=== PATIENT | female | born 1990 | race African-American/Black ===

== ENCOUNTER 2017-02-10 05:47 | Inpatient (IN) ==
[2017-02-10] MEDS ORDERED: FAMOTIDINE 20 MG/2 ML VIAL IV ONE (05:58)
[2017-02-10] MEDS ORDERED: CITRIC ACID/SODIUM CITRATE 30 ML UDCUP PO ONE (05:58)
[2017-02-10] MEDS ORDERED: ceFAZolin 2,000 MG in SODIUM CHLORIDE 0.9% 100 ML IV ONE (05:58)
[2017-02-10 06:25] LABS: Basophils % 0.3 % (0.0-0.8); Eosinophils # 0.1 10*3/uL (0.0-0.87); Eosinophils % 1.1 % (0.00-10.9); Hematocrit 32.3 VOL% (35.7-47.0); Hemoglobin 10.4 GM/DL (12.0-16.0); Immature Granulocytes % 0.3 %; Immature Granulocytes Absolute 0.03 #; Lymphocytes % 32.1 % (21.3-54.2); Mean Corpuscular HGB Conc 32.2 GM/DL (32-36); Mean Corpuscular Hemoglobin 25 PG (27-34); Mean Corpuscular Volume 77.1 FL (87-102); Mean Platelet Volume 11.6 FL (9.6-12.0); Monocytes # 0.8 10*3/uL (0.11-0.8); Monocytes % 8.1 % (1.7-12.7); Neutrophils # 5.4 10*3/uL (1.4-7.4); Neutrophils % 58.1 % (38.7-73.9); Platelet Count 182 T/CUMM (130-400); Red Blood Count 4.19 MC/CUMM (3.8-5.5); Red Cell Distribution Width 20.7 % (9.3-17.3); White Blood Count 9.3 T/CUMM (4-12)
[2017-02-10 07:05] LABS: Alanine Aminotransferase 16 U/L (13-56); Albumin 2.8 G/DL (3.4-5.0); Alkaline Phosphatase 140 U/L (45-117); Aspartate Amino Transferase 19 U/L (0-37); Bilirubin,Total < 0.39 MG/DL (0.2-1.0); Blood Urea Nitrogen 7 MG/DL (7-18); Calcium 8.4 MG/DL (8.5-10.1); Glucose 71 MG/DL (74-106); Osmolality,Calculated 270.7 MOS/KG (273-304); Potassium 3.8 MMOL/L (3.5-5.1); Sodium 138 MMOL/L (136-145); Total Protein 6.7 G/DL (6.4-8.3)
[2017-02-10] MEDS: LACTATED RINGERS 1,000 ML IV SCH ×3 (07:27→18:10)
[2017-02-10] MEDS ORDERED: OXYTOCIN 10 UNIT/ML VIAL IM ONE (07:29)
[2017-02-10] MEDS ORDERED: OXYTOCIN/LR 30 UNIT/1,000 ML BAG IV ONE (07:29)
[2017-02-10] MEDS ORDERED: ceFAZolin 2,000 MG in PREMIX 1 EACH IV ONE (08:00)
[2017-02-10] MEDS ORDERED: ONDANSETRON 4 MG/2 ML VIAL ONE (08:50)
[2017-02-10] MEDS ORDERED: PROPOFOL 200 MG/20 ML VIAL IV ONE (08:50)
--- NOTE | 2017-02-10 09:31 | OB/GYN History & Physical ---
History of Present Illness Chief complaint: In for repeat section due to previous section 2 History of present illness: Ms. Reed is a 26 year old female who is a 3 para 2 living 2. Her MAXINE is 02/15/2017 for an estimated gestational age of 39 weeks and 2 days. The patient presents for elective repeat section due to previous section. The risk and benefits of been thoroughly discussed with this patient and significant other and plan of care has been discussed with Dr. Silva and all parties are in agreement plan. The patient received her care through the [facility] and she received routine care throughout her course was uneventful. The patient and her care when she was approximately 17 weeks otherwise she has had an uneventful course of . labs she is rubella immune, serologies nonreactive, hepatitis B negative, HIV negative, GBS culture positive. Review of systems is negative. Home Medications Medication Instructions Recorded Confirmed Type Ondansetron Odt Tab [Zofran Odt] 4 mg PO Q6H PRN #20 tablet 07/06/16 02/10/17 Rx No122/Iron/Folic Acid 1 tablet PO DAILY 01/06/17 02/10/17 History [ Multi Tablet] Ranitidine Tab [Zantac Tab] 2 tablet PO DAILY 01/06/17 02/10/17 History Allergies Allergy/AdvReac Type Severity Reaction Status Date / Time No Known Allergies Allergy Verified 01/27/17 11:39 12 point system: reviewed and no additional remarkable complaints except as stated Medical,Surgical,& Family Hx - Medical History Cardio: No history of: Hypertension Psychological: No history of: Anxiety Disorders, ADHD, Behavior Problems, Bipolar Disorder, Depression, Previous Suicide Attempt, Psychiatric/Substance Abuse Tx, Schizophrenia, Violent Behavior, Psychiatric Problems Endocrine: No history of: Diabetes Mellitus (IDDM), Diabetes Mellitus (NIDDM) Respiratory: No history of: Asthma, Bronchitis, Pneumonia Renal: No history of: Renal Failure, Renal Problems Gastrointestinal: No history of: Gastrointestinal Bleed, Liver Problems, GI Problems Musculoskeletal: No history of: Amputation Reproductive: History of: Sexually Transmitted Disorders (CHLAMYDIA), Reproductive Cancer (Patient states that she has had cervical cancer) No history of: Reproductive Problems - Surgical History Thoracic Surgeries: Patient denies;: Organ Transplant Neurologic Surgeries: Patient denies: Neurologic Surgery Reproductive Surgeries: Surgical HX of;: Section (C/S X2) Patient denies;: Breast Surgery, Gynecologic Surgery - Family History Family History: Reports;: Family Diabetes (Grandmother), Family Hypertension ( Sisters) Denies;: Family Anesthesia Reaction, Family Cancer, Family Heart Disease, Family Hematology, Family Psychiatric Problems, Family Stroke, Additional Family History - Social History Smoking Status: Never smoker Frequency of Alcohol Use: None Type of Drug Use: None Marital Status: Single Lives With:: Significant Other Functional capacity: independent ambulation 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 General appearance: no acute distress - Antepartum / Post Antepartum Exam Cervix - Dilatation: Deferred Breast: bilateral: normal Abdomen obstetrics: Present: bowel sounds normal Vagina: Present: normal moisture, discharge Uterus exam: Present: enlarged Anus/Rectum: Present: normal perianal skin - Head Head exam: Present: normal inspection - Respiratory Respiratory exam: Present: clear to auscultation bilaterally - Cardiovascular Cardiovascular exam: Present: regular rate and rhythm - GI/Abdominal GI/Abdominal exam: Present: normal bowel sounds, soft - Extremities Exam Extremities exam: Present: normal inspection - Back Exam Back exam: Present: normal inspection - Neurological Exam Neurological exam: Present: alert, oriented X3 - Psychiatric Psychiatric exam: Present: normal affect, normal mood - Skin Skin exam: Present: normal color, warm Assessment and Plan (1) Previous section Status: Acute Assessment and plan: Admit IV fluids Preop for section Informed consent for section Anticipate delivery of a viable Current Visit: Yes (2) Status post repeat low transverse section Status: Acute Assessment and plan: Initiate routine postop orders. Current Visit: Yes Results - Labs CBC & BMP: 02/10/17 06:15 02/10/17 06:15
--- NOTE | 2017-02-10 09:51 | Operative Note ---
Date of procedure: 02/10/17 Procedure: Preoperative diagnosis: Term 39 weeks, repeat , elective sterilization Postoperative diagnosis: Same Anesthesia:[] Regional Estimated blood loss: [] 300 cc Surgeon: Dr. Silva Findings: [] Term delivered at 9:20 AM, placenta was delivered at 921 , weight is 7 lbs. 7 oz., Apgars were 9 at 1 minute 9 at 5 minutes, male Complications: None Procedure: Low transverse section and bilateral tubal ligation The patient was taken to the operating suite heart tones were obtained prior to and after regional anesthesia was obtained. She was placed in supine position her abdomen was prepped and draped in usual manner for major abdominal surgery. Through an abdominal incision the skin, subcutaneous, fascial layer and peritoneal the abdomen was entered. The bladder flap was created and a low transverse incision was made.. Fluid was clear and normal amount X, Apgars, the placenta was delivered and sent to lab for further evaluation. Injected with intrauterine Pitocin. The first layer of the uterus was closed with #1 Vicryl in a continuous locking manner. Close to imbricate the first layer with #1 Vicryl. The peritoneum was approximated with #2-0 Vicryl.[Fallopian tubes were grasped with a Job clamp. Into the avascular reason mesosalpinx was perforated. Proximal distal tube was ligated. Segment of the tube was cut in between. The cartilage was then cauterized] All the last sponges and instruments were accounted for -2.) #2-0 Vicryl. Fascia was approximated with #0-0 Maxon.. The skin was approximated with brice. She tolerated procedure well and was taken to recovery room in stable condition. Surgeon / Physician: Tanmay Silva Results - Labs CBC & BMP: 02/10/17 06:15 02/10/17 06:15 Discharge Plan - Discharge Medications No Action Ondansetron Odt Tab [Zofran Odt] 4 mg PO Q6H PRN #20 tablet PRN Reason: Nausea/Vomiting Ranitidine Tab [Zantac Tab] 2 tablet PO DAILY No122/Iron/Folic Acid [ Multi Tablet] 1 tablet PO DAILY - Follow Up or Referral - Forms/Instructions
[2017-02-10 09:54] LABS: Cord Arterial Blood HCO3 20.7 MMOL/L
[2017-02-10 09:57] LABS: Cord Venous Blood HCO3 21.8 MMOL/L; Cord Venous Blood PCO2 35.2 MMHG; Cord Venous Blood PO2 45.2
[2017-02-10] MEDS ORDERED: fentaNYL 100 MCG/2 ML VIAL ONE (09:59)
[2017-02-10] MEDS ORDERED: ePHEDrine 50 MG/ML AMP ONE (10:00)
[2017-02-10] MEDS ORDERED: MORPHINE 10 MG/10 ML VIAL ONE (10:00)
[2017-02-10] MEDS ORDERED: OXYTOCIN/LR 20 UNIT/1,000 ML BAG IV ONE ×3 (10:04→12:00)
[2017-02-10] MEDS ORDERED: SIMETHICONE CHEW 80 MG TABLET PO PRN (12:00)
[2017-02-10] MEDS ORDERED: ACETAMINOPHEN 325 MG TABLET PO PRN (12:00)
[2017-02-10] MEDS ORDERED: ONDANSETRON 4 MG/2 ML VIAL IV PRN (12:00)
[2017-02-10] MEDS ORDERED: RHO(D) IMMUNE GLOBULIN 300 MCG SYRINGE IM ONE (12:00)
--- NOTE | 2017-02-10 16:48 | Anesthesia Post-Op ---
Anesthesia Post OP - Post Ansesthetic Evaluation Patient seen in post op: Yes Resp: within normal limits CV: within normal limits Mental: within normal limits Temp: within normal limits [id number]: within normal limits Nausea and Vomiting: within normal limits Pain: within normal limits
[2017-02-10] MEDS: DOCUSATE SODIUM 100 MG CAPSULE PO SCH (20:51)
[2017-02-11] MEDS: LACTATED RINGERS 1,000 ML IV SCH ×2 (02:50)
[2017-02-11 07:11] LABS: Basophils % 0.2 % (0.0-0.8); Eosinophils # 0.1 10*3/uL (0.0-0.87); Eosinophils % 0.4 % (0.00-10.9); Hemoglobin 9.8 GM/DL (12.0-16.0); Immature Granulocytes % 0.6 %; Immature Granulocytes Absolute 0.08 #; Lymphocytes # 1.6 10*3/uL (1.4-4.0); Lymphocytes % 13.1 % (21.3-54.2); Mean Corpuscular HGB Conc 32.7 GM/DL (32-36); Mean Corpuscular Hemoglobin 25 PG (27-34); Mean Corpuscular Volume 76.9 FL (87-102); Mean Platelet Volume 11.5 FL (9.6-12.0); Monocytes # 0.7 10*3/uL (0.11-0.8); Monocytes % 5.3 % (1.7-12.7); Neutrophils # 10.1 10*3/uL (1.4-7.4); Neutrophils % 80.4 % (38.7-73.9); Platelet Count 168 T/CUMM (130-400); Red Cell Distribution Width 20.3 % (9.3-17.3); White Blood Count 12.5 T/CUMM (4-12)
[2017-02-11] MEDS: FERROUS SULFATE 325 MG TABLET PO SCH (09:06)
[2017-02-11] MEDS: MULTIVITAMIN (PRENATAL) TABLET PO SCH (09:06)
[2017-02-11] MEDS: MAGNESIUM HYDROXIDE SUSP 30 ML UDCUP PO PRN (09:06)
[2017-02-11] MEDS: DOCUSATE SODIUM 100 MG CAPSULE PO SCH ×2 (09:06→20:58)
--- NOTE | 2017-02-11 11:22 | Pathology Report from [facility] ---
[facility] ACCESSION # : [id number] PATIENT NAME : Viry Reed ORDERING DR : THIAGO SEQUEIRA MD CLINICAL HX: IUP @ 39.1 weeks - Repeat with elective tubal ligation - History of polyphydrominos POST-OP DX: Same SPECIMEN INFO: #1 Left segment of fallopian tube #2 Right segment of fallopian tube GROSS DESCRIPTION: #1 Received fresh labeled with the patients name VIRY REED and (A) LT SEG FALLOPIAN TUBE consists of a 3.5 x 0.6 cm segment of unfimbriated fallopian tube. The serosa is pink-contreras. A special service representative section submitted in cassette #1.#2 Received fresh labeled with the patients name VIRY REED and (B) RT SEG FALLOPIAN TUBE consists of a 2.6 x 0.6 cm segment of unfimbriated fallopian tube. The serosa is pink-contreras. A special service representative section submitted in cassette #2. DIAGNOSIS FOR VIRY REED: #1 Completely transected segment of fallopian tube, left.#2 Completely transected segment of fallopian tube, right. COLLECTED DATE: 02/10/2017 [facility] REPORT DATE: 02/11/2017 ELECTRONICALLY SIGNED BY: Rodri Donnelly M.D. 02/11/2017 - 9:59:38 [facility]ENTERCarina
[2017-02-11] MEDS: IBUPROFEN 800 MG TABLET PO PRN ×2 (12:13→21:01)
[2017-02-12 07:41] VITALS: BP 120/69
[2017-02-12] MEDS: FERROUS SULFATE 325 MG TABLET PO SCH (08:32)
[2017-02-12] MEDS: MAGNESIUM HYDROXIDE SUSP 30 ML UDCUP PO PRN (08:32)
[2017-02-12] MEDS: MULTIVITAMIN (PRENATAL) TABLET PO SCH (08:32)
[2017-02-12] MEDS: DOCUSATE SODIUM 100 MG CAPSULE PO SCH (08:32)
--- NOTE | 2017-02-12 09:07 | Discharge Summary ---
Hospital Course - Hospital Course Hospital Course: Ms. Reed is a 26-year-old female who presented to the labor department for repeat section due to previous section. The patient did receive the C- section and delivered a viable infant with no complications. She has followed a normal postoperative course and she has done well. Her incision is well approximated without signs of infection. Her brice are intact. Her fundus is firm and midline. Her bleeding is minimal with no odor. She is bonding well with her . Her vital signs and lab values are stable. She is voiding without difficulty. Bowel sounds are positive and she has had a normal bowel movement. She will be discharged home with prescriptions for pain and a follow-up appointment in our office. The patient received an bilateral tubal ligation with this admission. Diagnosis - Discharge Diagnosis (1) Previous section Status: Acute (2) Status post repeat low transverse section Status: Acute Specialty Discharge - Follow Up or Referrals Follow up with: Tanmay Silva MD [Physician] - 2 Weeks Discharge Plan - Discharge Data Disposition: Disch To Home/Self Care Condition at Discharge: Stable Discharge Diet: advance to your usual diet, regular diet Activity: increase activity as tolerated, no lifting, no prolonged standing Hygiene: may shower Weight Bearing at Discharge: partial weight bearing Driving: not until seen by doctor Contact your physician if you experience:: fever over 101, pain uncontrolled by pain medications - Discharge Medications New HYDROcodone/ACETAMIN 5-325 [[place] 5-325] 2 tablet PO Q6H PRN #30 tablet PRN Reason: Pain Severe (8-10) Ibuprofen Tab [Motrin Tab] 800 mg PO Q8H PRN #30 tablet PRN Reason: Pain Severe (8-10) Ferrous Sulfate Tab [Feosol Original Tab] 325 mg PO DAILY #30 tablet No Action Ondansetron Odt Tab [Zofran Odt] 4 mg PO Q6H PRN #20 tablet PRN Reason: Nausea/Vomiting Ranitidine Tab [Zantac Tab] 2 tablet PO DAILY No122/Iron/Folic Acid [ Multi Tablet] 1 tablet PO DAILY - Follow Up or Referral Follow Up: Tanmay Silva MD [Physician] - 2 Weeks - Forms/Instructions Instructions: Section (DC), Depression (GEN), Perineal Care (DC), Bleeding (DC) Exam - Constitutional Vitals: Period Temp Pulse Resp BP Sys/Pierre Pulse Ox Last 24 Hr 97.2 F-98.3 F 75-109 18-20 109-132/58-70 97-99 General appearance: no acute distress - Head Head exam: Present: normal inspection - Neck Neck exam: Present: normal inspection - Respiratory Respiratory exam: Present: clear to auscultation bilaterally - Cardiovascular Cardiovascular exam: Present: regular rate and rhythm - GI/Abdominal GI/Abdominal exam: Present: normal bowel sounds, soft - Extremities Exam Extremities exam: Present: normal inspection - Neurological Exam Neurological exam: Present: alert, oriented X3 - Psychiatric Psychiatric exam: Present: normal affect, normal mood - Skin Skin exam: Present: normal color, warm Discharge Results Procedures and tests throughout hospitalization: Pending Orders 02/10/17 06:15 Antibody Identification Stat Red Blood Cells Leuko Red Stat Type and Screen Stat 02/11/17 09:00 Urinalysis Stat Labs on day of discharge: Labs from last 24 hours 02/10/17 06:15 Crossmatch See Detail DS: Provider Date of admission: 02/10/17 05:58 Primary care physician: . No PCP Attending physician on admission: Tanmay Silva MD Consults: 02/10/17 05:58 Consult to Anesthesiology [CONS] Routine Consulting Provider: Reason for Anesthesiology: Pre-op Clearance 02/10/17 12:00 Consult to Household Coordinator [CONS] Routine Consult Household Coordinator: Breast Feeding Discharging clinician: Dorothy Jay CNM Expected date of discharge: 02/12/17
--- NOTE | 2017-02-12 09:32 | OB/GYN Progress Note ---
Assessment and Plan (1) Previous section Status: Acute Assessment and plan: Admit IV fluids Preop for section Informed consent for section Anticipate delivery of a viable infant Current Visit: Yes (2) Status post repeat low transverse section Status: Acute Assessment and plan: Initiate routine postop orders. 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 Bonding well with Exam COAL HIKER - Constitutional Vitals: Vital Signs Temp Pulse Resp BP Pulse Ox 02/12/17 07:40 98.3 F 79 20 120/69 98 02/12/17 06:30 18 02/12/17 05:45 18 02/12/17 04:00 98.1 F 109 H 18 126/68 97 02/12/17 03:00 18 02/12/17 02:00 18 02/12/17 01:00 18 02/12/17 00:00 97.3 F L 75 18 109/62 99 02/11/17 20:00 98.0 F 86 20 114/60 99 02/11/17 15:54 97.2 F L 90 20 132/70 98 02/11/17 12:00 97.9 F 83 20 120/58 98 General appearance: no acute distress - Antepartum / Post Post Exam Breast: bilateral: normal Abdomen obstetrics: Present: bowel sounds normal Vagina: Present: normal moisture, discharge (Light lochia rubra) Uterus exam: Present: enlarged (Fundus firm and midline incision well approximated without signs of infect) Anus/Rectum: Present: normal perianal skin - Gyencological / Post Surgical Post Surgical Exam Lungs: bilateral: normal Chest: Normal S1, Normal S2 Extremities COAL HIKER: Present: normal Abdomen obstetrics progress note: Present: normal appearance, soft Incision OB: Present: normal, intact - Respiratory Respiratory exam: Present: clear to auscultation bilaterally - Cardiovascular Cardiovascular exam: Present: regular rate and rhythm - GI/Abdominal GI/Abdominal exam: Present: normal bowel sounds, soft - Extremities Exam Extremities exam: Present: normal inspection - Neurological Exam Neurological exam: Present: alert, oriented X3 - Psychiatric Psychiatric exam: Present: normal affect, normal mood - Skin Skin exam: Present: normal color, warm Results - Labs CBC & BMP: 02/11/17 07:06 02/10/17 06:15
[2017-02-12] MEDS: IBUPROFEN 800 MG TABLET PO PRN (12:35)
== END 2017-02-12 15:00 | disposition home or self-care (01) | DRG 540 ==
LOC: N.LDOUT 05:47 → N.LD 05:49 → N.OB 12:04
PROVIDERS: ADMIT Obstetrics & Gynecology; ATTEND Obstetrics & Gynecology

== ENCOUNTER 2022-04-27 22:08 | Inpatient (IN) ==
[2022-04-28 01:06] LABS: Basophils % 0.4 % (0.0-0.8); Eosinophils # 0.1 10*3/uL (0.0-0.87); Eosinophils % 1.6 % (0.00-10.9); Hematocrit 24.3 VOL% (35.7-47.0); Hemoglobin 6.7 GM/DL (12.0-16.0); Immature Granulocytes % 0.2 %; Immature Granulocytes Absolute 0.02 #; Lymphocytes # 3.6 10*3/uL (1.4-4.0); Lymphocytes % 43.7 % (21.3-54.2); Mean Corpuscular HGB Conc 27.6 GM/DL (32-36); Mean Corpuscular Volume 67.3 FL (87-102); Mean Platelet Volume 9.7 FL (9.6-12.0); Monocytes # 0.5 10*3/uL (0.11-0.8); Monocytes % 5.7 % (1.7-12.7); Neutrophils % 48.4 % (38.7-73.9); Platelet Count 334 T/CUMM (130-400); Red Blood Count 3.61 MC/CUMM (3.8-5.5); Red Cell Distribution Width 22.6 % (9.3-17.3); White Blood Count 8.2 T/CUMM (4-12)
[2022-04-28 01:13] LABS: Albumin 3.4 G/DL (3.4-5.0); Bilirubin,Total 0.4 MG/DL (0.20-1.00); Calcium 8.1 MG/DL (8.5-10.1); Potassium 2.8 MMOL/L (3.5-5.1); Total Protein 7.6 G/DL (6.4-8.2)
[2022-04-28 01:30] LABS: Bacteria,Urine Occasional /HPF (Few); Bilirubin,Urine Negative (Negative); Blood, Urine Moderate mg/dL (Negative); Glucose,Urine (UA) Negative (Negative); Hyaline Casts,Urine 1 /LPF (0-3); Ketones,Urine 5 mg/dL (Negative); Mucus,Urine Occasional /LPF (Occasional); Nitrite,Urine Negative (Negative); Protein,Urine 30 mg/dL (Negative); Squamous Epithelial Cell,Urine Occasional /HPF (0-10); Urine Appearance Slightly Hazy (Clear); Urine Color Yellow (Yellow)
[2022-04-28 01:45] LABS: Barbiturates Screen,Urine Negative (Negative); Benzodiazepines Screen,Urine Negative (Negative); Cannabinoid Screen,Urine Negative (Negative); Opiate Screen,Urine Negative (Negative); Phencyclidine Screen,Urine Negative (Negative)
[2022-04-28] MEDS ORDERED: POTASSIUM CHLORIDE 20 MEQ TABLET PO STA (02:48)
[2022-04-28 03:27] LABS: Anisocytosis 1+; Microcytosis 1+; Platelet Estimate Normal
[2022-04-28 03:28] LABS: Ovalocytes Slight; Polychromasia Slight; Target Cells Few
[2022-04-28 03:29] LABS: Hypochromia 2+
[2022-04-28] MEDS ORDERED: ONDANSETRON 4 MG/2 ML VIAL IV PRN (03:46)
[2022-04-28 05:39] LABS: Basophils % 0.7 % (0.0-0.8); Eosinophils # 0.1 10*3/uL (0.0-0.87); Eosinophils % 1.5 % (0.00-10.9); Hematocrit 22.1 VOL% (35.7-47.0); Immature Granulocytes % 0.2 %; Immature Granulocytes Absolute 0.01 #; Lymphocytes # 2.4 10*3/uL (1.4-4.0); Lymphocytes % 39.8 % (21.3-54.2); Mean Corpuscular HGB Conc 28.1 GM/DL (32-36); Mean Corpuscular Volume 66.6 FL (87-102); Mean Platelet Volume 10.1 FL (9.6-12.0); Monocytes # 0.4 10*3/uL (0.11-0.8); Monocytes % 5.8 % (1.7-12.7); Platelet Count 301 T/CUMM (130-400); Red Blood Count 3.32 MC/CUMM (3.8-5.5); Red Cell Distribution Width 22.4 % (9.3-17.3); White Blood Count 6.1 T/CUMM (4-12)
[2022-04-28 05:49] LABS: Hemoglobin 6.2 GM/DL (12.0-16.0)
[2022-04-28 06:04] LABS: Albumin 3.2 G/DL (3.4-5.0); Bilirubin,Total 0.4 MG/DL (0.20-1.00); Potassium 3.1 MMOL/L (3.5-5.1); Thyroid Stimulating Hormone 2.58 uIU/ml (0.358-3.74); Total Protein 7.2 G/DL (6.4-8.2)
[2022-04-28] MEDS ORDERED: SODIUM CHLORIDE 0.9% 1,000 ML IV PRN (06:05)
[2022-04-28 06:58] LABS: Anisocytosis 1+; Eosinophils 3 % (0-10); Hypochromia 1+; Lymphocytes 39 % (20-55); Nucleated Red Blood Cells 1 /100 WBC (0-5); Platelet Estimate Normal; Total Cells Counted 100
[2022-04-28 06:59] LABS: Tear Drop Cells Few
[2022-04-28] MEDS ORDERED: POTASSIUM CHLORIDE 20 MEQ TABLET PO ONE (08:13)
[2022-04-28] MEDS ORDERED: PANTOPRAZOLE 40 MG TABLET PO SCH (09:00)
[2022-04-28] MEDS: MAGNESIUM OXIDE 400 MG TABLET PO SCH ×2 (09:42→20:03)
[2022-04-28] MEDS: FERROUS SULFATE 325 MG TABLET PO SCH ×2 (09:42→20:03)
[2022-04-28] MEDS: CLORAZEPATE 3.75 MG TABLET PO PRN (20:03)
[2022-04-29 05:53] LABS: Calcium 8.2 MG/DL (8.5-10.1); Osmolality,Calculated 276.4 MOS/KG (273-304); Potassium 3.1 MMOL/L (3.5-5.1)
[2022-04-29 06:10] LABS: Basophils % 0.3 % (0.0-0.8); Eosinophils # 0.1 10*3/uL (0.0-0.87); Hematocrit 23.8 VOL% (35.7-47.0); Hemoglobin 6.6 GM/DL (12.0-16.0); Immature Granulocytes % 0.3 %; Immature Granulocytes Absolute 0.02 #; Lymphocytes # 2.1 10*3/uL (1.4-4.0); Lymphocytes % 33.4 % (21.3-54.2); Mean Corpuscular HGB Conc 27.7 GM/DL (32-36); Mean Corpuscular Volume 68.2 FL (87-102); Mean Platelet Volume 10.3 FL (9.6-12.0); Monocytes # 0.4 10*3/uL (0.11-0.8); Monocytes % 6.9 % (1.7-12.7); Neutrophils % 58.1 % (38.7-73.9); Platelet Count 292 T/CUMM (130-400); Red Blood Count 3.49 MC/CUMM (3.8-5.5); Red Cell Distribution Width 22.8 % (9.3-17.3); White Blood Count 6.2 T/CUMM (4-12)
[2022-04-29] MEDS ORDERED: POTASSIUM CHLORIDE 20 MEQ TABLET PO PRN (06:15)
[2022-04-29 08:39] LABS: Folate 1.68 NG/ML (5.38-24.0); Vitamin B12 343 PG/ML (211-911)
[2022-04-29 08:41] LABS: % Iron Saturation 31.1 % (18-50); Ferritin 7.6 ng/mL (8-252)
[2022-04-29] MEDS: FERROUS SULFATE 325 MG TABLET PO SCH ×2 (08:59→20:50)
[2022-04-29] MEDS: MAGNESIUM OXIDE 400 MG TABLET PO SCH ×2 (08:59→20:50)
[2022-04-29 09:15] LABS: Basophils % 0.2 % (0.0-0.8); Eosinophils # 0.1 10*3/uL (0.0-0.87); Eosinophils % 1.3 % (0.00-10.9); Hematocrit 23.7 VOL% (35.7-47.0); Hemoglobin 6.6 GM/DL (12.0-16.0); Immature Granulocytes % 0.6 %; Immature Granulocytes Absolute 0.03 #; Lymphocytes # 1.7 10*3/uL (1.4-4.0); Lymphocytes % 32.1 % (21.3-54.2); Mean Corpuscular HGB Conc 27.8 GM/DL (32-36); Mean Corpuscular Volume 68.3 FL (87-102); Mean Platelet Volume 9.9 FL (9.6-12.0); Monocytes # 0.3 10*3/uL (0.11-0.8); Monocytes % 5.9 % (1.7-12.7); Neutrophils % 59.9 % (38.7-73.9); Platelet Count 280 T/CUMM (130-400); Red Blood Count 3.47 MC/CUMM (3.8-5.5); Red Cell Distribution Width 22.9 % (9.3-17.3); White Blood Count 5.3 T/CUMM (4-12)
[2022-04-29] MEDS ORDERED: POTASSIUM CHLORIDE 20 MEQ TABLET PO ONE (10:19)
[2022-04-29 10:38] LABS: Sedimentation Rate-Westergren 20 MM/HR (0-20)
[2022-04-29] MEDS: FOLIC ACID 1 MG TABLET PO SCH (11:49)
[2022-04-29] MEDS: amLODIPine 5 MG TABLET PO SCH (11:49)
[2022-04-29] MEDS: CLORAZEPATE 3.75 MG TABLET PO PRN (20:50)
[2022-04-30 05:12] LABS: Basophils % 0.4 % (0.0-0.8); Eosinophils # 0.1 10*3/uL (0.0-0.87); Eosinophils % 1.2 % (0.00-10.9); Hematocrit 26.6 VOL% (35.7-47.0); Hemoglobin 7.6 GM/DL (12.0-16.0); Immature Granulocytes % 1.5 %; Immature Granulocytes Absolute 0.13 #; Lymphocytes # 2.3 10*3/uL (1.4-4.0); Lymphocytes % 27.2 % (21.3-54.2); Mean Corpuscular HGB Conc 28.6 GM/DL (32-36); Mean Corpuscular Volume 68.9 FL (87-102); Mean Platelet Volume 10.3 FL (9.6-12.0); Monocytes # 0.5 10*3/uL (0.11-0.8); Monocytes % 6.3 % (1.7-12.7); Neutrophils % 63.4 % (38.7-73.9); Platelet Count 276 T/CUMM (130-400); Red Blood Count 3.86 MC/CUMM (3.8-5.5); Red Cell Distribution Width 23.3 % (9.3-17.3); White Blood Count 8.4 T/CUMM (4-12)
[2022-04-30 05:28] LABS: Calcium 8.4 MG/DL (8.5-10.1); Osmolality,Calculated 278.3 MOS/KG (273-304); Potassium 3.1 MMOL/L (3.5-5.1)
[2022-04-30] MEDS: FERROUS SULFATE 325 MG TABLET PO SCH ×2 (08:50→20:32)
[2022-04-30] MEDS: MAGNESIUM OXIDE 400 MG TABLET PO SCH ×2 (08:50→20:32)
[2022-04-30] MEDS: amLODIPine 5 MG TABLET PO SCH (08:50)
[2022-04-30] MEDS: FOLIC ACID 1 MG TABLET PO SCH (08:50)
[2022-04-30 09:07] LABS: Hemoglobin A1 (Alkaline) 98.5 % (96.5-98.5); Hemoglobin A2 (Alkaline) 1.5 % (1.5-3.5)
[2022-05-01 05:54] LABS: Calcium 8.9 MG/DL (8.5-10.1); Osmolality,Calculated 280.1 MOS/KG (273-304); Potassium 3.4 MMOL/L (3.5-5.1)
[2022-05-01 05:54] LABS: Calcium 8.9 MG/DL (8.5-10.1); Osmolality,Calculated 279.1 MOS/KG (273-304); Potassium 3.8 MMOL/L (3.5-5.1)
[2022-05-01 06:03] LABS: Basophils % 0.3 % (0.0-0.8); Eosinophils # 0.1 10*3/uL (0.0-0.87); Eosinophils % 1.5 % (0.00-10.9); Hemoglobin 8.2 GM/DL (12.0-16.0); Immature Granulocytes % 0.7 %; Immature Granulocytes Absolute 0.06 #; Lymphocytes % 32.7 % (21.3-54.2); Mean Corpuscular HGB Conc 28.6 GM/DL (32-36); Mean Corpuscular Volume 68.8 FL (87-102); Mean Platelet Volume 9.9 FL (9.6-12.0); Monocytes # 0.5 10*3/uL (0.11-0.8); Monocytes % 5.2 % (1.7-12.7); Neutrophils % 59.6 % (38.7-73.9); Platelet Count 279 T/CUMM (130-400); Red Blood Count 4.17 MC/CUMM (3.8-5.5); Red Cell Distribution Width 23.9 % (9.3-17.3); White Blood Count 9.2 T/CUMM (4-12)
[2022-05-01 06:05] LABS: Hematocrit 28.7 VOL% (35.7-47.0)
[2022-05-01 06:11] LABS: Anisocytosis 1+; Hypochromia 2+; Polychromasia Slight
[2022-05-01 06:12] LABS: Platelet Estimate Normal; Target Cells Slight
[2022-05-01] MEDS ORDERED: POTASSIUM CHLORIDE 20 MEQ TABLET PO ONE (08:00)
[2022-05-01] MEDS: MAGNESIUM OXIDE 400 MG TABLET PO SCH (08:06)
[2022-05-01] MEDS: amLODIPine 5 MG TABLET PO SCH (08:06)
[2022-05-01] MEDS: FOLIC ACID 1 MG TABLET PO SCH (08:06)
[2022-05-01] MEDS: FERROUS SULFATE 325 MG TABLET PO SCH (08:06)
[2022-05-01 15:25] VITALS: BP 124/88
== END 2022-05-01 16:55 | disposition home or self-care (01) | DRG 532 ==
LOC: N.EDINP 22:08 → N.ED 22:08 → SUATTDRO 04-28 03:46 → N.3E 04-28 10:46 → SUATTDRO 04-29 08:22
PROVIDERS: ADMIT Emergency Medicine; ATTEND Internal Medicine Geriatric Medicine